=== PATIENT | female | born 1980 ===

== ENCOUNTER 2024-12-11 10:37 | Outpatient (OUT) | payer BC, SELFPAY ==
--- NOTE | 2024-12-11 10:58 | MM_ITS ---
Patient Name: TOM ALLEN MR#: [id number] : 1980 Exam Date: 12/11/2024 Ordering Doctor: Jazmin Roach RADIOLOGY REPORT PROCEDURE: MM TOMOSYNTHESIS SCREENING BI COMPARISON: None. INDICATIONS: Screening Calculator Name NCI Breast Cancer Risk Assessment Tool 5 Year Breast Cancer Risk 1.10% Lifetime Breast Cancer Risk 13.10% Personal Breast Cancer No Personal Ovarian Cancer No Treatments None Family Cancers None LOCATION: [facility] BREAST COMPOSITION: The breasts are heterogeneously dense,which may obscure small masses. FINDINGS: DIAGNOSTIC CATEGORY 2--BENIGN FINDING: RECOMMENDATIONS: RIGHT BREAST: No significant suspicious finding. Benign-appearing lymph nodes are noted along the right chest wall appeared LEFT BREAST: No significant suspicious finding. There are a few benign-appearing calcifications on the left appeared ROUTINE MAMMOGRAM AND CLINICAL EVALUATION IN 12 MONTHS. PLEASE NOTE: A NORMAL MAMMOGRAM DOES NOT EXCLUDE THE POSSIBILITY OF BREAST CANCER. A CLINICALLY SUSPICIOUS PALPABLE LUMP SHOULD BE BIOPSIED. Dictated by: Greg Wolfe MD on 12/11/2024 at 15:52 Approved by: Greg Wolfe MD on 12/11/2024 at 15:56
== END 2024-12-11 10:38 | disposition home or self-care (01) ==
LOC: MAMMO 10:40
PROVIDERS: Visit Provider Student in an Organized Health Care Education/Training Program
DX: Z12.31 Encounter for screening mammogram for malignant neoplasm of breast (principal)
CPT/HCPCS: 77063; 77067